=== PATIENT | male | born 1960 | race Caucasian/White ===

== ENCOUNTER 2019-11-15 09:03 | Outpatient (CLI) | payer OTHER, SELFPAY ==
--- NOTE | 2019-11-15 | EST_ITS ---
Patient Info Name: José Miguel Carrion Age: 59 years : 1960 Gender: Male Ht: 68 in Wt: 260 lbs BSA: 2.43 m2 HR: 76 bpm BP: 153 / 94 mmHg Heart Rhythm: Sinus Rhythm Exam Date: 11/15/2019 11:00 AM Exam Location: [facility] Stress Patient Status: Outpatient Admit Date: 11/15/2019 Staff Ordering Physician: Lindy Travis MD Attending Provider: Lindy Travis MD Exercise Technologist: Kathy Naranjo RDCS Exercise Physician: Chase Stokes DO Exam Type: CA stress julian w NM Study Info Indications R06.02 - Shortness of breath A regadenoson stress test was performed. Summary 1. 1. Negative lexiscan stress test for ischemic ST changes by ECG criteria. 2. 2. Baseline hypertension with rapid HR response to Lexiscan. 3. 3. Nuclear scan to follow and will be reported separately. Please correlate with it. 4. 4. Patient informed of the above results. Protocol: Lexiscan Stress ECG Details Stage: REST Duration (min): 2 min : 7 sec HR (bpm): 77 SBP (mmHg): 153 DBP (mmHg): 94 Stage: REST Duration (min): 5 min : 45 sec HR (bpm): 82 SBP (mmHg): 153 DBP (mmHg): 94 Stage: STAGE 1 Duration (min): 0 min : 59 sec HR (bpm): 82 SBP (mmHg): 162 DBP (mmHg): 99 Stage: RECOVERY Duration (min): 1 min : 0 sec HR (bpm): 130 SBP (mmHg): 164 DBP (mmHg): 99 Stage: RECOVERY Duration (min): 2 min : 0 sec HR (bpm): 110 SBP (mmHg): 164 DBP (mmHg): 99 Stage: RECOVERY Duration (min): 3 min : 0 sec HR (bpm): 100 SBP (mmHg): 154 DBP (mmHg): 99 Stage: RECOVERY Duration (min): 3 min : 9 sec HR (bpm): 94 SBP (mmHg): 154 DBP (mmHg): 99 Rest HR: 82 bpm Peak HR: 130 bpm Rest Sys BP: 153 mmHg Peak Sys BP: 164 mmHg Max Pred HR: 159 bpm % Max Pred HR: 82 % Target HR: 135 bpm Max RPP: 21,320 bpm*mmHg Termination Reason: Completed protocol Total Time: 1 min : 0 sec Rest Wilks BP: 94 mmHg Peak Wilks BP: 99 mmHg Total Dose: 0.4 mg Resting ECG Sinus rhythm, IRBBB. Stress ECG No ST changes. Sinus tachycardia at 130 bpm. Arrhythmias None. Report Signatures
--- NOTE | ~2019-11-15 | NM_ITS ---
EXAMINATION: NM julian stress w perfusion DATE: 11/15/2019 13:11 INDICATION: Other forms of dyspnea. TECHNIQUE: Rest images were obtained following intravenous administration of 9.2 mCi Tc99m tetrofosmi n (Myoview). The patient was infused intravenously with Lexiscan (regadenoson). Then, 29.7 mCi Tc99m tetrofosmin (Myoview) was administered intravenously, and stress images were obtained. Data was recon structed into short axis and horizontal and vertical long axis SPECT images. Gated SPECT images were also obtained. COMPARISON: None. FINDINGS: There is a moderate-sized, mild, partially reversible perfusion defect involving left ventr icular apex, apical lateral segment, and apical inferior segment, consistent with mixed ischemia and infarct. There is no segmental wall motion abnormality. Left ventricular ejection fraction measures >70%. IMPRESSION: 1. Moderate-sized area of mild mixed ischemia and infarct involving left ventricular apex and apical lateral and apical inferior segments. I called this result to Dr. Travis on 11/15/19 at 13:38. 2. Normal left ventricular ejection fraction measuring >70%. Reviewed, dictated and finalized at location A. BED WORKER IMPRESSION: 1. Moderate-sized area of mild mixed ischemia and infarct involving left ventri cular apex and apical lateral and apical inferior segments. I called this resul t to Dr. Travis on 11/15/19 at 13:38. 2. Normal left ventricular ejection fraction measuring >70%.
--- NOTE | 2019-11-16 21:12 | WPDSIXMINUTE ---
Six Minute Walk Six Minute Walk: DOS: 11/15/2019 REQUESTING: Dr. Travis REASON FOR TESTING: Shortness of breath SIX MINUTE WALK This test was conducted per ATS guidelines. Initial saturation was 93%, pulse was 69. This test was conducted on room air. The patient walked for 6 minutes without stopping with a mean transient drop to 89% with spontaneous recovery. Saturation during recovery was 91%. Pulse at the end of the study was 93. Maximal heart rate was 108. Distance walked was 900 ft/274 meters. IMPRESSION: This study shows mild desaturation to 89% without sustained hypoxemia. No supplemental oxygen is indicated with exertion. Distance walked is adequate for age. Lindy Travis MD
== END 2019-11-15 09:04 | disposition home or self-care (01) ==
PROVIDERS: PCP Family Medicine; Visit Provider Internal Medicine Critical Care Medicine
DX: R06.09 Other forms of dyspnea (principal); J44.9 Chronic obstructive pulmonary disease, unspecified; I24.8 Other forms of acute ischemic heart disease
CPT/HCPCS: 78452; 93017; 94618; A9502; J2785

== ENCOUNTER 2019-12-29 07:45 | Day surgery (SDC) | payer OTHER, SELFPAY ==
[2019-12-29] VITALS (10 sets, daily range): BP systolic 103–167; BP diastolic 77–97; PULSE 65–95; RESP 13–24; TEMP 36.6; O2SAT 93–99; BMI 42.3
[2019-12-29 07:45] LABS: Basophils Percent Auto 0.5 % (0.2-1.2); Eosinophils Absolute Auto 0.3 K/mm3 (0-0.3); Eosinophils Percent Auto 3.4 % (0-4.4); Hematocrit 48.9 % (42.0-52.0); Immature Granulocyte Absolute 0.03 K/mm3 (0.00-0.031); Immature Granulocyte Percent A 0.4 % (0-0.5); Lymphocytes Absolute Auto 2.86 K/mm3 (0.9-3.2); Lymphocytes Percent Auto 33.5 % (18.3-44.2); Mean Corpuscular HGB Conc 32.7 g/dl (32-36); Mean Corpuscular Hemoglobin 29.1 pg (26-34); Mean Corpuscular Volume 89.1 fl (80-100); Mean Platelet Volume 11.8 fl (7.4-10.4); Monocytes Absolute Auto 0.9 K/mm3 (0.1-0.6); Monocytes Percent Auto 10.2 % (2.6-8.5); Neutrophils Absolute Auto 4.5 K/mm3 (1.3-6.7); Platelet Count Result 164 k/mm3 (150-375); Red Blood Count 5.49 M/mm3 (4.6-6.20); Red Cell Distribution Width 14.4 % (11.5-14.5); White Blood Count 8.5 K/mm3 (4.5-10.0)
--- NOTE | 2019-12-29 07:49 | SUR.PREOP ---
0715-pt presents to the [facility] for an LHC. No distress noted. AOx4. PIV started and labs obtained and sent per order. Bilateral pedal pulses noted. Questions answered and verbalized understanding. Consent signed. Naseem's test performed and found to be negative. Will continue to monitor.
[2019-12-29 07:56] LABS: INR 0.9; Prothrombin Time 12.1 Seconds (11.1-14.7)
[2019-12-29 07:57] LABS: Blood Urea Nitrogen 12 mg/dL (9-20); Calcium 9.1 mg/dL (8.4-10.2); Carbon Dioxide 29 mmol/L (22-30); Chloride 104 mmol/L (98-107); Estimated CRCL calculation 81 ml/min; Estimated Glomerular Filt Rate > 60; Glucose 123 mg/dL (75-110); Potassium 4.4 mmol/L (3.4-5.0); Sodium 138 mmol/L (137-145)
--- NOTE | 2019-12-29 08:19 | P.PCNCC_ITS ---
Cardiac Cath Procedure Note Date of procedure:: 12/29/19 Performing physician:: Robbi Zamudio MD Indication:: Abnormal stress test and dyspnea on exertion. date of service December 29, 2019 Brief clinical history:: This 59-year-old patient with past history of COPD, chronic tobacco abuse who was evaluated for dyspnea on exertion and underwent stress testing that shows ischemia in the apical territory. He denies chest pain but he cannot do much anything without getting short of breath on exertion. Procedure Procedure performed:: 1-Moderate sedation that started at 8:50 a.m.and ended at 9:05 a.m. total duration for the minutes using 3 mg of Versed and 50 mcg fentanyl. The registered nurse was Leno Newman. 2-Selective left and right coronary angiogram. 3-Left heart catheterization with measurement of LVEDP and measurement of gradient across aortic valve. 4-Right common femoral arterial angiogram. 5-Deployment of 6 Kittitian Angio-Seal. Sedation/Medication given:: Moderate sedation. Access site:: Right common femoral artery. Estimated blood loss:: 10cc Procedure note:: After informed consent patient was brought in to skilled laborer with the was draped and prepped in usual manner. Moderate sedation was given and the right groin was infiltrated using 1% lidocaine. Five Kittitian sheath was obtained using micropuncture needle and the modified Seldinger technique. Selective left coronary angiogram was done using JL4 catheter with the tip of the catheter placed in the left main coronary artery. Selective right coronary angiogram was done using JR4 catheter with the tip of the catheter placed to the right coronary artery. After that 5 Kittitian pigtail catheter was advanced across the aortic valve into the left ventricle with measurement of LVEDP and measurement of gradient across aortic valve. Right common femoral arterial angiogram was done. Findings:: 1- left coronary artery is a large artery that divides into large LAD, large circumflex artery and small ramus intermedius. Left main is Free of disease. 2- left anterior descending artery is a large artery that runs and wraps around the apex. It is free of disease. Gives rise to a medium-sized diagonal 1 branch proximally that is free of disease. 3- leftcircumflex artery is a large artery Free of disease. The midsegment Gives rise to large OM1 branch that is free of disease. 4- right coronary artery is large artery and dominant and free of disease. 5- LVEDP was 15 mm Hgand no gradient across aortic valve. 6- opening arterial pressure was 114/82and closing pressure was 144/60 7- right femoral artery angiogram shows no significant disease in the right common femoral artery. Conclusion:: false positive stress test. Normal coronary arteries. Normal LVEDP. Assessment and Plan Additional Plan Likely shortness of breath is secondary to underlying COPD. Optimize pulmonary management.
--- NOTE | 2019-12-29 08:19 | WPDHPUPDATE1 ---
History and Physical Update Update Date/Time: 12/29/19 08:19 History and Physical has been reviewed, including an updated exam of the patient. There are NO changes in the patient's condition. Risks, benefits, and alternatives have been discussed and questions answered. Patient agrees to proceed with procedure.
--- NOTE | 2019-12-29 08:19 | WPDMODSED ---
Moderate Sedation Note-Pt Data Patient Data Allergies Allergy/AdvReac Type Severity Reaction Status Date / Time No Known Allergies Allergy Unverified 12/28/19 20:04 Home Medications Medication Instructions Recorded Confirmed Type loratadine 10 mg tablet 10 mg PO DAILY 11/02/19 12/28/19 History albuterol sulfate [Ventolin HFA] 2 puff INHALATION Q4H PRN 12/28/19 12/28/19 History aspirin 81 mg PO DAILY 12/28/19 12/28/19 History ggltkrywhfi-yapphwcia-rjvidigx 1 inh INHALATION DAILY 12/28/19 12/28/19 History [Trelegy Ellipta] omeprazole 20 mg PO DAILY 12/28/19 12/28/19 History Current Medications: Active Medications Sodium Chloride (Normal Saline Iv) 500 mls @ 100 mls/hr IV CONT .Q5H LYSSA Sedation/Anesthesia: No previous sedation/anesthesia problems (including family history). PMFSH Past Medical History Medical History COPD (chronic obstructive pulmonary disease) Family History Family History Father Hypertension Family history of diabetes mellitus in first degree relative Family history of heart disease in male family member before age 55 Sibling Family history of chronic obstructive pulmonary disease Grandparent Diabetes mellitus Social History Social History Smoking packs per day: 1 Smoking cigarettes per day: 20.0 Years smoked: 40 Smoking pack-years: 40.00 Smoking status: Former smoker Tobacco type: cigarettes Smoking end date: 11/02/17 Alcohol intake: current Substance use: never Substance use type: does not use Gender identity (if verbalized by the patient): Male Mod Sed Physical Exam Physical Exam Pre Procedural Exam: Normal: Appearance, Eyes, Ears, Nose, Neck, Throat, Airway, Lungs, Heart Size, Heart Rate, Heart Rhythm, Neuro Exam, Abdomen, Liver, Kidneys, Spleen, Breasts, Genitalia, Extremities and Skin Hours since solid foods: 8 Hours since liquid intake: 8 Internal Medicine - PN: Obj Da Vital Signs Vital Signs: Vital Signs - 24 hr 12/29/19 07:46 Temperature 36.6 C Pulse Rate 85 Respiratory Rate 14 Blood Pressure 164/91 H Pulse Oximetry 96 Meds/Results Medications: Active Medications Generic Name Dose Route Start Last Admin Trade Name Shaun PRN Reason Stop Dose Admin Sodium Chloride 500 mls @ 100 mls/hr 12/29/19 06:00 Normal Saline Iv IV CONT .Q5H LYSSA Labs CBC & Chem 7: 12/29/19 07:40 12/29/19 07:39 Labs: Laboratory Results - last 24 hr 12/29/19 12/29/19 12/29/19 07:39 07:39 07:40 WBC 8.5 RBC 5.49 Hgb 16.0 Hct 48.9 MCV 89.1 MCH 29.1 MCHC 32.7 RDW 14.4 Plt Count 164 MPV 11.8 H Immature Gran % (Auto) 0.4 Neut % (Auto) 52.0 Lymph % (Auto) 33.5 Young % (Auto) 10.2 H Eos % (Auto) 3.4 Baso % (Auto) 0.5 Lymph # (Auto) 2.86 Young # (Auto) 0.9 H Eos # (Auto) 0.3 Baso # (Auto) 0.0 Abs Immat Gran (auto) 0.03 Absolute Neuts (auto) 4.5 Absolute Nucleated RBC 0.0 Nucleated RBC % 0.0 PT 12.1 INR 0.9 Sodium 138 Potassium 4.4 Chloride 104 Carbon Dioxide 29 BUN 12 Creatinine 1.10 Estim Creat Clear Calc 81 Estimated GFR > 60 Glucose 123 H Calcium 9.1 ASA Classification/Sedation ASA Classification/Sedation ASA Class: I Emergent: No Risks: Risks, benefits and alternatives explained and patient/family accepted plan for sedation. Patient re-evaluated immediately prior to sedation.
[2019-12-29] MEDS: MIDAZOLAM HCL 2 MG/2 ML VIAL 1 MG IV PUSH (08:20)
--- NOTE | 2019-12-29 10:16 | SUR.PHASEII ---
12/29/19: 1015:HEAD OF BED ELEVATED 30 DEGREES. PATIENT EATING AND DRINKING TOLERATING WELL.
--- NOTE | 2019-12-29 12:46 | SUR.PHASEII ---
20:12:30: PATIENT UP TO BEDSIDE RECLINER. RT GROIN SITE IS CLEAN AND DRY. NO HEMATOMA OR BLEEDING NOTED. PULSES STRONG. PATIENT INSTRUCTED ON WHAT SIGNS AND SYMPTOMS TO MONITOR FOR AND WHEN TO CALL THE NURSE. CALL L[facility] AND BELONGINGS WITHIN REACH.
--- NOTE | 2019-12-29 13:27 | SUR.PHASEII ---
12/29/19: 13:20: DETAILED DISCHARGE INSTRUCTIONS GIVEN TO THE PATIENT. PATIENT VERBALIZED AN UNDERSTANDING OF THESE INSTRUCTION. RT GROIN SITE IS CLEAN AND DRY. NO HEMATOMA OR BLEEDING NOTED. PULSES PALPATED STRONG.
== END 2019-12-29 13:35 | disposition home or self-care (01) ==
LOC: ANHCATHLAB 12-30 09:29 → ANHCPC 12-30 09:31
PROVIDERS: PCP Family Medicine; Visit Provider Internal Medicine Cardiovascular Disease
PROC: 4A023N7 Measurement of Cardiac Sampling and Pressure, Left Heart, Percutaneous Approach (ICD-10-PCS; CPT 93452; principal; 2019-12-29 08:30)
DX: R94.39 Abnormal result of other cardiovascular function study (principal); R06.09 Other forms of dyspnea; J44.9 Chronic obstructive pulmonary disease, unspecified; Z79.82 Long term (current) use of aspirin; Z87.891 Personal history of nicotine dependence
CPT/HCPCS: 36415; 80048; 85025; 85610; 93458; C1760; C1887; C1894; G0269

== ENCOUNTER 2020-01-17 10:11 | Outpatient (CLI) | payer OTHER, SELFPAY ==
--- NOTE | ~2020-01-17 | CT_ITS ---
EXAMINATION: CT chest high resolution wo id DATE: 01/17/2020 10:40 INDICATION: Chronic obstructive pulmonary disease TECHNIQUE: Computed tomography (CT) of the chest was performed without intravenous contrast. The dose -length product was 821.19 mGy-cm. Automated exposure control and iterative reconstruction technique were employed. COMPARISON: No prior studies for comparison. FINDINGS: There is moderate emphysema. No endobronchial lesions. There is right basilar dependent ate lectasis/scarring. Heart size normal. No significant pleural or pericardial effusion. There is a 5 mm Fissural nodule, likely benign on the left. Mild thoracic spondylosis. No other pulmonary nodules or masses. No pneumothorax. IMPRESSION: 1. Moderate emphysema. 2: 5 mm left-sided fissural nodule, likely benign. Follow-up low dose CT in 12 months recommended. Reviewed, dictated and finalized at location A.
== END 2020-01-17 10:12 | disposition home or self-care (01) ==
LOC: ANHIMG 10:13
PROVIDERS: PCP Family Medicine; Visit Provider Nurse Practitioner Family
DX: J44.9 Chronic obstructive pulmonary disease, unspecified (principal); R94.2 Abnormal results of pulmonary function studies; J43.9 Emphysema, unspecified; R91.8 Other nonspecific abnormal finding of lung field
CPT/HCPCS: 71250

== ENCOUNTER 2020-03-20 12:46 | Outpatient (CLI) | payer OTHER, SELFPAY ==
--- NOTE | ~2020-03-20 | NM_ITS ---
EXAMINATION: NM thyroid scan w uptake DATE: 03/21/2020 14:31 INDICATION: Abnormal finding on blood chemistry COMPARISON: None. TECHNIQUE: 367 microcuries I-123 was administered orally in capsule form. Scintigraphic images of th e thyroid gland were obtained at 24 hours. Thyroid uptake was calculated by the technologist. FINDINGS: The thyroid uptake is 5.7% (normal 10-30%), with the right lobe measuring 4.4% uptake and the left 1. 3%. The left thyroid lobe appears correspondingly smaller than the right thyroid lobe both on the cur rent images as well as on chest CT dated 01/17/2020. There is no focal area of focally decreased or in creased activity to suggest hypofunctioning or hyperfunctioning nodule. IMPRESSION: 1. Decreased bilateral 24-hour thyroid iodine uptake particularly at the small left thyroid lobe whi ch can be seen with subacute thyroiditis, Talia's thyroiditis, excess iodine intake or factitious thyroiditis. Reviewed, dictated and finalized at location A. IMPRESSION: 1. Decreased bilateral 24-hour thyroid iodine uptake particularly at the small left thyroid lobe which can be seen with subacute thyroiditis, Talia's thy roiditis, excess iodine intake or factitious thyroiditis.
== END 2020-03-20 12:47 | disposition home or self-care (01) ==
LOC: ANHIMG 12:51
PROVIDERS: PCP Family Medicine; Visit Provider Family Medicine
DX: R79.89 Other specified abnormal findings of blood chemistry (principal); E05.90 Thyrotoxicosis, unspecified without thyrotoxic crisis or storm
CPT/HCPCS: 78014; A9516

== ENCOUNTER 2020-06-05 10:27 | Outpatient (CLI) | payer OTHER, SELFPAY ==
--- NOTE | ~2020-06-05 | US_ITS ---
US thyroid INDICATION: Nontoxic goiter TECHNIQUE: Real-time sonographic images of the thyroid gland were obtained. COMPARISON: No prior studies for comparison. FINDINGS: The right thyroid lobe measures 5.5 x 2.6 x 1.9 cm. The left thyroid lobe measures 4.7 x 2 .1 x 2.2 cm. There is heterogeneous echotexture and echogenicity throughout the thyroid gland. No dis crete nodules identified. Normal vascular flow is present. IMPRESSION: 1. Enlarged thyroid gland without discrete mass. Reviewed, dictated and finalized at location B.
== END 2020-06-05 10:28 | disposition home or self-care (01) ==
PROVIDERS: PCP Family Medicine; Visit Provider Internal Medicine Endocrinology, Diabetes & Metabolism
DX: E04.9 Nontoxic goiter, unspecified (principal)
CPT/HCPCS: 76536

== ENCOUNTER 2020-11-28 08:31 | Outpatient (CLI) | payer OTHER, SELFPAY | END 2020-11-28 08:32 | disposition home or self-care (01) | LOC: ANHCOVIDVC 08:31 | PROVIDERS: PCP Family Medicine | DX: Z23 Encounter for immunization (principal) | CPT/HCPCS: 0001A; 91300 ==

== ENCOUNTER 2020-12-19 08:34 | Outpatient (CLI) | payer SELFPAY | END 2020-12-19 08:35 | LOC: ANHCOVIDVC 08:35 | PROVIDERS: PCP Family Medicine | DX: Z23 Encounter for immunization (principal) | CPT/HCPCS: 0002A; 91300 ==

== ENCOUNTER 2021-09-06 12:14 | Emergency (ER) | payer OTHER, SELFPAY ==
--- NOTE | ~2021-09-06 | XR_ITS ---
EXAMINATION: XR chest 2V DATE: 09/06/2021 12:43 INDICATION: Cough and congestion TECHNIQUE: PA and lateral views of the chest are obtained. COMPARISON: None available FINDINGS: The lungs are free of acute opacities. There is no pleural effusion or pneumothorax. The ca rdiomediastinal silhouette is normal. There is mild thoracic spondylosis. IMPRESSION: 1. No acute cardiopulmonary abnormality. Reviewed, dictated and finalized at location A. [facility]ISOR HISTOLOGY
[2021-09-06 12:24] VITALS: BP 181/97; PULSE 73; RESP 20; TEMP 36.8; O2SAT 94
--- NOTE | 2021-09-06 12:28 | ED.URI ---
HPI - URI/Sore Throat General Chief Complaint: Upper Respiratory Infection Stated Complaint: Cough,Congestion Time Seen by Provider: 09/06/21 12:30 Source: patient, RN notes reviewed and old records reviewed Mode of arrival: ambulatory Limitations: no limitations History of Present Illness HPI Narrative: 61-year-old male presents to the [facility] with complaints of cough and shortness of breath for 1 week. Has been using his inhaler with no relief. Tried using his nebulizer treatment 1 time in the last week states he did feel little bit better. No other treatments prior to arrival. States the last couple of days he has had a productive cough and is unable to sleep at night. Denies chest pain or abdominal pain. Denies fevers. Related Data Home Medications Medication Instructions Recorded Confirmed loratadine 10 mg tablet 10 mg PO DAILY 11/02/19 09/06/21 aspirin 81 mg PO DAILY 12/28/19 09/06/21 lottdizwflr-ttvetzhvz-jhzbzrfw INHALATION 09/06/21 [Trelegy Ellipta] lisinopril 10 mg PO DAILY 09/06/21 09/06/21 tamsulosin 0.4 mg PO DAILY 09/06/21 09/06/21 trazodone 50 mg PO HS 09/06/21 09/06/21 Allergies Allergy/AdvReac Type Severity Reaction Status Date / Time No Known Allergies Allergy Verified 09/06/21 12:18 Review of Systems Review of Systems: All systems reviewed & are unremarkable except as noted in HPI and below Constitutional: Constitutional: Reports no additional constitutional complaints, Denies chills and Denies fever(s) Eyes: Eyes: Reports no additional eye complaints ENT: Reports as per HPI and Reports nasal congestion Cardiovascular: Cardiovascular: Denies chest pain and Denies radiating jaw, neck or arm pain Respiratory: Respiratory: Reports as per HPI, Reports chest congestion, Reports cough and Reports dyspnea Gastrointestinal: Gastrointestinal: Reports no additional gastrointestinal complaints, Denies abdominal pain, Denies diarrhea, Denies nausea and Denies vomiting Musculoskeletal: Musculoskeletal: Reports no additional musculoskeletal complaints Integumentary/Breasts: Skin/Breast: Reports system reviewed and no additional complaints, except as docu Neurologic: Reports system reviewed and no additional complaints, except as documented Psychiatric: Psychiatric: Reports no additional psychiatric complaints Allergic/Immunologic: Allergic/Immunologic: Reports no additional allergic/immunologic complaints PMFSH Past Medical History Medical History COPD (chronic obstructive pulmonary disease) Family History Family History Father Hypertension Family history of diabetes mellitus in first degree relative Family history of heart disease in male family member before age 55 Sibling Family history of chronic obstructive pulmonary disease Grandparent Diabetes mellitus Social History Social History Smoking packs per day: 1 Smoking cigarettes per day: 20.0 Years smoked: 40 Smoking pack-years: 40.00 Smoking status: Former smoker Tobacco type: cigarettes Smoking end date: 11/02/17 Alcohol intake: current Substance use: never Substance use type: does not use Gender identity (if verbalized by the patient): Male Comments At the time of my signature, I reviewed and agree with the nursing past medical, surgical, social, and family history. There is no relevant family history pertinent to the patient complaint. Exam Const: General: no acute distress, alert and ill appearing acutely and chronically Nutritional Appearance: well nourished and obese Orientation/consciousness: patient oriented x3 Limitations: no limitations HENMT: Head: normal to inspection Ears: external ears normal, TM's normal bilaterally and EAC's normal Eyes: Pupils: Equal, round and reactive pupils present Neck: Neck: normal visual inspection, no lympha
[2021-09-06 12:45] VITALS: PULSE 98; RESP 22; O2SAT 94
[2021-09-06] MEDS: IPRATROPIUM BR 0.02% INH SOLN 0.5 MG/2.5 ML VIAL INHALATION (12:45)
[2021-09-06] MEDS: ALBUTEROL SULFATE NEB 2.5 MG/3 ML INH INHALATION (12:45)
== END 2021-09-06 13:26 | disposition home or self-care (01) ==
PROVIDERS: Emergency Provider Nurse Practitioner; PCP Emergency Medicine
DX: J40 Bronchitis, not specified as acute or chronic (principal); R09.82 Postnasal drip; J01.90 Acute sinusitis, unspecified; Z87.891 Personal history of nicotine dependence; Z79.82 Long term (current) use of aspirin
CPT/HCPCS: 71046; 94640; 99213; G0463